=== PATIENT | female | born 1945 | race Caucasian/White ===

== ENCOUNTER 2021-08-28 14:56 | Outpatient (CLI) | payer MEDICARE, BC, SELFPAY ==
--- NOTE | ~2021-08-28 | DEXA_ITS ---
Bone Density Report Name: Fabiola Florez Age: 76 Sex: Female Ethnicity: White Date of : 1945 Indication: postmenopausal; height loss; hysterectomy; Referring Provider: Judy Alexandra Study: Bone densitometry was performed. Exam Date: August 28, 2021 Accession number: [id number] Bone Density: Region BMD T-score Z-score Classification AP Spine (L1, L2) 1.041 0.6 2.8 Normal Femoral Neck (Left) 0.703 -1.3 0.8 Osteopenia Total Hip (Left) 0.920 -0.2 1.6 Normal Total Hip Bilateral Avg 0.916 -0.3 1.6 Normal Femoral Neck (Right) 0.772 -0.7 1.4 Normal Total Hip (Right) 0.910 -0.3 1.5 Normal World Health Organization criteria for BMD impression classify patients as: Normal (T-score at or above -1.0), Osteopenia (T-score between -1.0 and -2.5), or Osteoporosis (T-score at or below -2.5). 10-year Fracture Risk(1): Major Osteoporotic Fracture 10% Hip Fracture 1.8% Reported Risk Factors: [place] (), Neck BMD=0.703, BMI=31.7 (1) FRAX(R) Version 3.08. Fracture probability calculated for an untreated patient. Fracture probability may be lower if the patient has received treatment. Previous Exams: Region Exam Age BMD T-score BMD Change BMD Change Date g/cm2 vs Baseline vs Previous AP Spine(L1, L2) 08/28/2021 76 1.041 0.6 -0.008(-0.8%)# 0.065(6.7%)# 02/18/2014 68 0.976 0.0 -0.073(-7.0%)# -0.114(-10.5%) 07/09/2009 64 1.090 1.0 0.041(3.9%)* 0.041(3.9%)* 11/16/2005 60 1.049 0.6 Total Hip(Left) 08/28/2021 76 0.920 -0.2 -0.145(-13.6%) -0.071(-7.2%)# 02/18/2014 68 0.991 0.4 -0.074(-7.0%)# -0.030(-2.9%)# 07/09/2009 64 1.021 0.6 -0.044(-4.2%)* -0.044(-4.2%)* 11/16/2005 60 1.065 1.0 Total Hip(Right) 08/28/2021 76 0.910 -0.3 -0.125(-12.1%) -0.112(-11.0%) 02/18/2014 68 1.021 0.7 -0.013(-1.2%)# -0.033(-3.1%)# 07/09/2009 64 1.054 0.9 0.020(1.9%) 0.020(1.9%) 11/16/2005 60 1.034 0.8 *Denotes significance at 95% confidence level, LSC for AP Spine = 0.022 g/cm2, LSC for Total Hip = 0.027 g/cm2 Clinical Information Provided by Patient: Has used the following medications: Calcium Has the following medical conditions: Hysterectomy Patient maximum height was 63 Menopause Age: 51 Onset of menses at age 11 Number of children 2 Impression: The patient has low bone mass, based on the Left Femoral Neck T-score. The patient has an estimated ten-year risk o
== END 2021-08-28 14:57 | disposition home or self-care (01) ==
LOC: ANHIMG 15:01
PROVIDERS: PCP Family Medicine; Visit Provider Physician Assistant
DX: Z78.0 Asymptomatic menopausal state (principal); M85.852 Other specified disorders of bone density and structure, left thigh
CPT/HCPCS: 77080

== ENCOUNTER 2024-11-22 00:10 | Day surgery (SDC) | payer MEDICARE, BC, SELFPAY ==
[2024-10-31 14:05] VITALS: BMI 27.1
[2024-11-22 12:05] VITALS: BP 154/84; PULSE 85; RESP 18; O2SAT 98; BMI 27.2
--- NOTE | 2024-11-22 12:14 | WPDANESEPPF ---
Anes - Initial Pre Proc Eval Procedure: Operation Date: 11/22/24 13:30 Proposed Procedures p Colonoscopy - Johan Castillo MD Date/Time: 11/22/24 12:14 Surgeon: Johan Castillo MD Pre Op Diagnosis: + Cologuard Patient Data Age: 79 Gender: F Height: 1.6 m Weight: 69.7 kg Last Vital Signs Pulse 85 11/22/24 12:05 Resp 18 11/22/24 12:05 BP 154/84 H 11/22/24 12:05 Pulse Ox 98 11/22/24 12:05 O2 Del Method Room Air 11/22/24 12:05 Allergies Allergy/AdvReac Type Severity Reaction Status Date / Time No Known Allergies Allergy Verified 11/22/24 12:03 Home Medications ?Medication ?Instructions ?Recorded ?Confirmed ?Type blood-glucose meter (True Metrix #1 ea 10/19/19 10/31/24 History Glucose Meter) aspirin 81 mg tablet,delayed 81 mg PO DAILY 10/25/19 10/31/24 History release blood sugar diagnostic (True See Rx Instructions .Route 03/03/21 10/31/24 Rx Metrix Glucose Test Strip) .COMPLEX #200 strips timolol maleate 0.5 % once daily 1 drp EACH EYE DAILY 07/26/23 10/31/24 History eye drops calcium 600 mg (as 1 cap PO DAILY 12/07/23 10/31/24 History carbonate)-vitamin D3 12.5 mcg (500 unit) capsule amlodipine 10 mg tablet See Rx Instructions .Route 08/14/24 10/31/24 Rx .COMPLEX #90 tabs atorvastatin 20 mg tablet See Rx Instructions .Route 08/14/24 10/31/24 Rx .COMPLEX #90 tabs ramipril 10 mg capsule See Rx Instructions .Route 08/14/24 10/31/24 Rx .COMPLEX #90 caps metformin 500 mg tablet See Rx Instructions .Route 11/20/24 11/22/24 Rx .COMPLEX #180 tabs Patient hx anesthesia problems: none Family hx anesthesia problems: none Results Review: All pre-operative results and documents have been reviewed as part of the pre-operative evaluation. [facility], [facility] Past Medical History Medical History Mixed hyperlipidemia Metabolic syndrome X Type 2 diabetes mellitus with other diabetic kidney complication Chronic kidney disease, stage 3 (moderate) Hypertensive chronic kidney disease with stage 1 through stage 4 chronic kidney disease, or unspecified chronic kidney disease Surgical History Surgical History History of hysterectomy (~1995) History of cataract extraction (~06/18/09) History of cataract extraction (~06/02/11) History of colonoscopy (~12/07/11) History of carpal tunnel release (~03/14/17) Family History Family History Grandparent Diabetes mellitus Mother Hypertension Father Patient's father is Sibling Family history of malignant neoplasm Family history of lung cancer Other Family history of cardiovascular disease Social History Social History Social History: Caffeine- some Smoking status: Never smoker Alcohol intake: current Alcohol use details: rarely Substance use: never Substance use type: does not use Do You Feel Safe in your Home?: Yes Lack of Transportation: No Lack of Food: Never True Current Housing: I Have Housing Concerned About Future Housing: No Difficulty Paying Gas/Electric Bills: No Difficulty Paying for Meds: No Currently Unemployed: No Education: High School Diploma/GED Difficulty w/ Childcare or Family Care: No Living arrangements: alone Occupation/Education: retired Gender identity (if verbalized by the patient): Female Spiritual care concerns: No Agree to blood products: Yes Anes - Eval Final PreProcedure Day of Procedure 11/22/24 12:14 Patient weight: overweight Heart: regular rate and rhythm Lungs: clear to auscultation Airway: Mallampati scale class II Neurological: alert and oriented Last oral intake: >/= 8 hours ASA classification: III Emergent: no Anesthetic plan: proceed Anesthesia type and monitoring: general GIVS and standard monitoring Results Review: All pre-operative results and documents have been reviewed as part of the pre-operative evaluation. Informed Consent: The patient's anesthetic plan and its attendant risks and benefits were discussed with the patient/family/POA. Questions were solicited and answers provided to the satisfaction of the patient/family/POA.
[2024-11-22] MEDS: LACTATED RINGERS 1,000 ML 150 ML IV CONT (12:16)
[2024-11-22 12:19] LABS: Glucose Point of Care 142 mg/dl (65-105)
--- NOTE | 2024-11-22 12:52 | PM.HPGS ---
History of Present Illness History of Present Illness Consent: Risks, benefits, and alternatives have been discussed and questions answered. Patient agrees to proceed with procedure. Chief complaint: + Cologuard Narrative: Fabiola Florez is a 79 year old female here with + cologuard, last colonoscopy more than 10 years ago Review of Systems Review of Systems: All systems reviewed & are unremarkable except as noted in HPI and below PMFSH Past Medical History Medical History Mixed hyperlipidemia Metabolic syndrome X Type 2 diabetes mellitus with other diabetic kidney complication Chronic kidney disease, stage 3 (moderate) Hypertensive chronic kidney disease with stage 1 through stage 4 chronic kidney disease, or unspecified chronic kidney disease Surgical History Surgical History History of hysterectomy (~1995) History of cataract extraction (~06/18/09) History of cataract extraction (~06/02/11) History of colonoscopy (~12/07/11) History of carpal tunnel release (~03/14/17) Family History Family History Grandparent Diabetes mellitus Mother Hypertension Father Patient's father is Sibling Family history of malignant neoplasm Family history of lung cancer Other Family history of cardiovascular disease Social History Social History Social History: Caffeine- some Smoking status: Never smoker Alcohol intake: current Alcohol use details: rarely Substance use: never Substance use type: does not use Do You Feel Safe in your Home?: Yes Lack of Transportation: No Lack of Food: Never True Current Housing: I Have Housing Concerned About Future Housing: No Difficulty Paying Gas/Electric Bills: No Difficulty Paying for Meds: No Currently Unemployed: No Education: High School Diploma/GED Difficulty w/ Childcare or Family Care: No Living arrangements: alone Occupation/Education: retired Gender identity (if verbalized by the patient): Female Spiritual care concerns: No Agree to blood products: Yes Meds Home Medications and Allergies Home Medications ?Medication ?Instructions ?Recorded ?Confirmed ?Type blood-glucose meter (True Metrix #1 ea 10/19/19 10/31/24 History Glucose Meter) aspirin 81 mg tablet,delayed 81 mg PO DAILY 12/12/19 12/18/24 History release blood sugar diagnostic (True See Rx Instructions .Route 03/03/21 10/31/24 Rx Metrix Glucose Test Strip) .COMPLEX #200 strips timolol maleate 0.5 % once daily 1 drp EACH EYE DAILY 07/26/23 10/31/24 History eye drops calcium 600 mg (as 1 cap PO DAILY 12/07/23 10/31/24 History carbonate)-vitamin D3 12.5 mcg (500 unit) capsule amlodipine 10 mg tablet See Rx Instructions .Route 08/14/24 10/31/24 Rx .COMPLEX #90 tabs atorvastatin 20 mg tablet See Rx Instructions .Route 08/14/24 10/31/24 Rx .COMPLEX #90 tabs ramipril 10 mg capsule See Rx Instructions .Route 08/14/24 10/31/24 Rx .COMPLEX #90 caps metformin 500 mg tablet See Rx Instructions .Route 11/20/24 11/22/24 Rx .COMPLEX #180 tabs Allergies Allergy/AdvReac Type Severity Reaction Status Date / Time No Known Allergies Allergy Verified 11/22/24 12:03 Vital Signs Vital Signs - 24 hr 11/22/24 12:05 Pulse Rate 85 Respiratory Rate 18 Blood Pressure 154/84 H Pulse Oximetry 98 Oxygen Delivery Room Air Exam Const: General: comfortable and no acute distress HENMT: Face/Nose/Sinus: Normal nares present Eyes: General: appearance normal, both eyes and all related structures Neck: Neck: no JVD Resp: Auscultation: clear to auscultation bilaterally Cardio: Rate: regular rate Rhythm: regular rhythm GI: Inspection: non-distended GI Palp: Yes Soft to palpation Skin: General skin exam: normal color Neuro: Speech: normal speech Extrem: General: normal to inspection Psych: Mental Status: mental status grossly normal Assessment and Plan Assessment and plan (1) Positive FIT (fecal immunochemical test): Code(s): R19.5 - Other fecal abnormalities Status: Acute Assessment and Plan: colonoscopy
[2024-11-22 13:18] VITALS: BP 130/60; PULSE 73; RESP 17; O2SAT 99
[2024-11-22 13:28] VITALS: BP 139/70; PULSE 69; RESP 20; O2SAT 98
[2024-11-22 13:38] VITALS: BP 157/84; PULSE 74; RESP 20; O2SAT 99
== END 2024-11-22 13:55 | disposition home or self-care (01) ==
PROVIDERS: PCP Family Medicine; Referring Provider Nurse Practitioner; Visit Provider Internal Medicine Gastroenterology
PROC: 0DJD8ZZ Inspection of Lower Intestinal Tract, Via Natural or Artificial Opening Endoscopic (ICD-10-PCS; CPT 45378; principal; 2024-11-22 13:30)
DX: D12.2 Benign neoplasm of ascending colon (principal); K64.8 Other hemorrhoids; K57.30 Diverticulosis of large intestine without perforation or abscess without bleeding; E78.2 Mixed hyperlipidemia; E11.22 Type 2 diabetes mellitus with diabetic chronic kidney disease; I12.9 Hypertensive chronic kidney disease with stage 1 through stage 4 chronic kidney disease, or unspecified chronic kidney disease; N18.30 Chronic kidney disease, stage 3 unspecified; E88.810 Metabolic syndrome; Z79.82 Long term (current) use of aspirin; Z79.84 Long term (current) use of oral hypoglycemic drugs; Z98.890 Other specified postprocedural states; Z80.1 Family history of malignant neoplasm of trachea, bronchus and lung; Z82.49 Family history of ischemic heart disease and other diseases of the circulatory system
CPT/HCPCS: 45380; 82948; 88305; J2003; J2704; J7120

== ENCOUNTER 2025-07-22 10:18 | Emergency (ER) | payer MEDICARE, BC, SELFPAY ==
--- OUTSIDE RECORDS SUMMARY | 2010-07-28 08:00 | XMS_ITS | Continuity of Care Document ---
Author Organization Subject Company [facility] Address [address] [place] [phone] Phone Care Team Providers Care Director Of [employer] Name Role Phone Jacqueline Oconnell Unavailable Unavailable Procedures Procedure Date Office/outpatient Visit, Est Fundus Photography W/ Report Visual Field Examination(s) Office/outpatient Visit, Est Post-op Follow-up Visit Post-op Follow-up Visit Post-op Follow-up Visit Remove Cataract, Insert Lens Office/outpatient Visit, Est IOLMaster Office/outpatient Visit, Est Eye Exam Established Pt Ophthalmoscopy, Subsequent Eye Exam & Treatment Ophthalmoscopy, Subsequent Optic Nerve Topography Office Consultation Ophthalmoscopy Optic Nerve Topography Injection Eye Drug Kenalog/Triamcinolone Acetonide Inj Eye Exam & Treatment Fundus Photography W/ Report Office/outpatient Visit, Est Visual Field Examination(s) Office/outpatient Visit, Est Vision Svcs Frames Purchases Progressive Lens, Polycarb Tint Photochromatic, Polycarb 7 Eye Exam & Treatment Refraction Fundus Photography W/ Report Visual Field Examination(s) Advance Directives Directive Yes / No Effective Date File Name No Information Encounters Encounter Description Practice Location Reason(s) For Visit Diagnoses Date Provider Providers Copied on Encounter Office/outpati ent Visit, [facility], [address] [place] [address] [address], [place], [place], [id number], [phone] [place] [address] No Information - 0 [facility] [employer] [facility] , [address], [place], [place], [facility], . tel:[phone] Referring Provider: [facility] [employer] [facility] [address], [place], [facility]. tel:[phone] [facility], [address] [place] [address] [address], [place], [place], [id number], tel:[phone] [facility] No Information 0-201 0 [address], [address], [place], [address], [place]. tel:[phone] Referring Provider: Jacqueline Reynolds, [employer] [address], [place], [facility]. tel:[phone] Office/outpati ent Visit, [facility], [address] [place] [address] [address], [place], [place], [address], [place] tel:[phone] [facility] No Information 2- 0 [facility] , [address], [place], [address], . tel:[phone] [facility], [address] [place] [address] [address], [place], [place], [address], [place] tel:[phone] [facility] No Information 200 9 Oconnell Jacqueline. [address] , [address], [place], [facility], [place]. tel:[phone] [facility], [address] [place] [address] [address], [place], [place], [address], [place] [phone] [facility] No Information 200 9 Kourtney Phillips. [address] [facility] , [address], [place], [facility], [place]. tel:[phone] [facility], [address] [place] [address] [address], [place], [place], [address], [place] tel:[phone] [facility] No Information 0 9 Glynn OD Jay. [address] [facility] , [address], [place], [facility], [place]. tel:[phone] [facility], [address] [place] [address] [address], [place], [place], [address], [place] tel:[phone] [facility] No Information 0 9 Kourtney Mcgrathn. [address] [facility] , [address], [place], [facility], [place]. tel:[phone] Office/outpati ent Visit, [facility], [address], [place], [place], [address], [place] [phone] [facility] No Information 2 9 Oconnell Jacqueline. [address] , [address], [place], [facility], [place]. tel:[phone] Referring Provider: Jacqueline Reynolds, [address], [place], [facility]. tel:[phone] Office/outpati ent Visit, Est [facility], [address], [place], [place], [address], [place] tel:[phone] [facility] No Information 200 9 Oconnell Jacqueline. [address] , [address], [place], [facility], [place]. tel:[phone] [facility], [address] [place] [address] [address], [place], [place], [address], tel:[phone] [facility] No Information 2200 9 Tata Saucedo. [address] [place], [place], [facility], [place]. tel:[phone] Referring Provider: Lewis Rey, [address] [place], [facility]. tel:[phone] [facility], [address] [place] [address] [address], [place], [place], [address], [place] [phone] [facility] No Information 9 Tata Saucedo. [address] [place] [address], [facility], [place]. tel:[phone] Referring Provider: Lewis Rey, [address] [place], [facility]. tel:[phone] Office Consultation [facility], [address] [place] [address] [address], [place], [place], [address], [place] tel:[phone] [facility] No Information 2 9 Tata Saucedo. [address] [place], [facility], [place]. tel:[phone] Referring Provider: Jacqueline Reynolds, [address], [place], [facility]. tel:[phone] [facility], [address] [place] [address] [address], [place], [place], [address], [place] tel:[phone] [facility] No Information 0-200 9 Kourtney Phillips. [address] , [address], [place], [facility], [place]. tel:[phone] Referring Provider: Jacqueline Reynolds, [address], [place], [address]. tel:[phone] Office/outpati ent Visit, [facility], [address] [place] [address] [address], [place], [place], [address], [place] tel:[phone] [facility] No Information Jun-2 9200 8 Kourtney Phillips. [address] , [address], [place], [facility], [place]. tel:[phone] [facility], [address] [place] [address] [address], [place], [place], [address], [place] tel:[phone] [facility] No Information Feb-2 8-200 8 Kourtney Phillips. [address] [facility] , [address], [place], [facility], [place]. tel:[phone] Referring Provider: Jacqueline Reynolds, [employer] [facility] [address], [place], [facility]. tel:[phone] Office/outpati ent Visit, [facility], [address] [place] [address] [address], [place], [place], [address], [place] tel:[phone] [place] [address] No Information Aug- 2-200 7 Kourtney Phillips. [address] [facility] , [address], [place], [facility], [place]. tel:[phone] [facility], [address] [place] [address] [address], [place], [place], [address], [place] tel:[phone] [facility] No Information Saleem-2 2-200 7 [facility] . [address] [facility], [address], [place], [place], [address], . tel:[phone] Referring Provider: Jacqueline Reynolds, [employer] [employer] [facility] [address], [place], [facility]. tel:[phone] g Provider: Christianne Lawson, [address] [facility], [place], [address]. tel:[phone] [facility], [address] [place] [address] [address], [place], [place], [address], tel:[phone] [place] [address] No Information 7 Kourtney Phillips. [facility] [place] , [address], [place], [facility], . tel:[phone] Referring Provider: Jacqueline Reynolds, [facility] [address], [place], [facility]. tel:[phone] [facility], [address] [place] [address] [address], [place], [place], [address], tel:[phone] [facility] No Information 7 Kourtney Phillips. [facility] , [address], [place], [facility], . tel:[phone] Referring Provider: Jacqueline Reynolds, [facility] [place] [address], [place], [facility]. tel:[phone] Family History Family Member Type Diagnosis Age At Onset No Information Payers Payer name Insurance type Covered libertarian ID Authoriza tion[id number] Social History Type Description Quantity Date Captured Comments Sex Female Smoking Status No Information Chief Complaint And Reason For Visit No Information Reason For Referral Reason For Referral No Information History Of Present Illness Encounter Date Complaint History Of Prese nt Illness No Information Functional Status Date Functional Assessmen t No Information Instructions Date Instruction Additional Infor mation No Information Assessments Type Assessment Date No Information Patient Care Teams Name Effective Dates (start - stop) Status Members No Information
[2025-07-22 10:33] VITALS: BP 139/62; PULSE 76; RESP 18; TEMP 36.4; O2SAT 98
--- NOTE | 2025-07-22 11:06 | ED.SKABFB ---
HPI - Skin/Abscess/Foreign Bdy General Chief complaint: Skin/Abscess/Foreign Body Stated complaint: bump on side of nose Time Seen by Provider: 07/22/25 10:46 Source: patient, RN notes reviewed and old records reviewed Mode of arrival: ambulatory Limitations: no limitations History of Present Illness HPI narrative: 10 year old female who presents to [facility] care with complaints of red spot to the right side of her nose since fall of last year but for the past month patient has had raised tissue to area measuring 2 cm X 1.5 cm. Patient reports no pain to tissue area but tisue has changed in appearance over the past month with tissue now raised. Patient reports that she has not had any drainage from the raised tissue area. She states that she does not have a doctor's appointment with PCP till September did not call her doctor's office.Patient reports no itching of tissue MD complaint: lesion (initially reddish raised are right side of nose now raised) Onset (ago): month(s) (increased symptoms for 1 month with tissue raised now right side of nose.) Treatments prior to arrival: none Related Data Home Medications ?Medication ?Instructions ?Recorded ?Confirmed ?Last Taken ?Type blood-glucose meter (True Metrix #1 ea 10/19/19 06/04/25 Unknown History Glucose Meter) aspirin 81 mg tablet,delayed 81 mg PO DAILY 10/25/19 06/04/25 Unknown History release timolol maleate 0.5 % once daily 1 drp EACH EYE DAILY 07/26/23 06/04/25 Unknown History eye drops calcium 600 mg (as 1 cap PO DAILY 12/07/23 06/04/25 Unknown History carbonate)-vitamin D3 12.5 mcg (500 unit) capsule Allergies Allergy/AdvReac Type Severity Reaction Status Date / Time No Known Allergies Allergy Verified 07/22/25 10:33 Review of Systems Review of Systems: CONSTITUTIONAL: Denies fever, chills, or sweats. CARDIOVASCULAR: Denies chest pain, palpitations, or edema. RESPIRATORY: Denies cough or dyspnea. SKIN: Reports redness to the right side of her nose since last fall and for the past 1 month she has raised tissue in area of right side of nose with no break in skin integrity MUSCULOSKELETAL: Denies joint pain or myalgia. NEUROLOGIC: Denies headache, numbness, or weakness. All systems reviewed & are unremarkable except as noted in HPI and below PMFSH Past Medical History Medical History (Updated 07/22/25 @ 19:37 by Fatuma Rodriges NP) Glaucoma Mixed hyperlipidemia Metabolic syndrome X Type 2 diabetes mellitus with other diabetic kidney complication Chronic kidney disease, stage 3 (moderate) Hypertensive chronic kidney disease with stage 1 through stage 4 chronic kidney disease, or unspecified chronic kidney disease Surgical History Surgical History History of hysterectomy (~1995) History of cataract extraction (~06/18/09) History of cataract extraction (~06/02/11) History of colonoscopy (~12/07/11) History of carpal tunnel release (~03/14/17) Family History Family History Grandparent Diabetes mellitus Mother Hypertension Father Patient's father is Sibling Family history of malignant neoplasm Family history of lung cancer Other Family history of cardiovascular disease Social History Social History Social History: Caffeine- some Smoking status: Never smoker Alcohol intake: current Alcohol use details: rarely Substance use: never Substance use type: does not use Do You Feel Safe in your Home?: Yes Lack of Transportation: No Lack of Food: Never True Current Housing: I Have Housing Concerned About Future Housing: No Difficulty Paying Gas/Electric Bills: No Difficulty Paying for Meds: No Currently Unemployed: No Education: High School Diploma/GED Difficulty w/ Childcare or Family Care: No Living arrangements: alone Occupation/Education: retired Gender identity (if verbalized by the patient): Female Spiritual care concerns: No Agree to blood products: Yes Comments At time of signature, agree with nursing past medical, surgical, social and family history. There is no relevant family history pertinent to the presenting complaint Exam Narrative: GENERAL: Well-appearing, well-nourished, and in no acute distress. HEAD: Normocephalic, atraumatic. EYES: PERRLA, conjunctivae clear, and EOMI. ENT: Mucous membranes moist. Oropharynx without edema, erythema or lesions. NECK: Supple. No lymphadenopathy CHEST: Clear to auscultation. No respiratory distress. no cough or congestion noted HEART: Regular rate and rhythm. SKIN: Warm, dry.? patch of erythema with raised tissue area to right side of nose measuring 2cm X 1.5cm with no itching or reported pain, no fluctuation of tissue noted or any pustules noted on raised skin tissue on nose. NEURO:? Alert and oriented x3. PSYCH: Normal mood and affect Course Course Emergency Course: Patient is aware of diagnosis, understands and agrees to treatment plan.? Anticipatory guidance given.? Patient agrees to follow-up as directed and is aware of reasons to seek care at the emergency department. Portions of this record may have been created with voice recognition software Level of Care: Express Care Visit Vital Signs Vital signs: Vital Signs Temperature 36.4 C 07/22/25 10:33 Pulse Rate 76 07/22/25 10:33 Respiratory Rate 18 07/22/25 10:33 Blood Pressure 139/62 07/22/25 10:33 Pulse Oximetry 98 07/22/25 10:33 Oxygen Delivery Room Air 07/22/25 10:33 Temperature 36.4 C 07/22/25 10:33 Pulse Rate 76 07/22/25 10:33 Respiratory Rate 18 07/22/25 10:33 Blood Pressure 139/62 07/22/25 10:33 Pulse Oximetry 98 07/22/25 10:33 Oxygen Delivery Room Air 07/22/25 10:33 Reviewed MDM - Skin/Abscess/Foreign Bdy MDM Narrative Medical decision making narrative: Does not appear at this time to be erythema multiforme, bullous, SJS, TEN; no evidence at this time to suggest RMSF, endocarditis or Lyme disease; patient looks well, nontoxic and is tolerating oral intake; no neurologic signs or symptoms; no headache, photophobia or neck pain; afebrile; appropriate for initial outpatient treatment; discussed the importance of follow-up, patient agrees; question, viral exanthema, contact dermatitis, allergic dermatitis, eczema, urticaria.. No soft palate or uvula edema, no tongue, lip edema or other mucosal involvement, no respiratory compromise, no stridor, no wheezing, no wheezing, no history of syncope, no hypotension, no nausea, vomiting, or diarrhea.? Instructed patient to go to nearest ER immediately for any worsening symptoms including but not limited to: fever, spreading rash, pain, sore throat, headache, dizziness, chest pain, trouble breathing, or any symptoms concerning to the patient. Differential Diagnosis Differential diagnosis: Likely eczema, contact dermatitis and other (keratosis, precancerous or cancerous lesion face.) Medical Records Attestation: I reviewed the patient's medical records. Critical Care Time Critical Care Time Critical Care Time: No Discharge Plan Discharge Clinical Impression: External nasal lesion Patient Disposition: Home Condition: Stable Additional Instructions: Avoid any irritating medication to area or metal Apply mupirocin twice daily Appointment established with [facility] for further evaluation for this TuesdayJuly 26 at 1030 information given to patient with address phone number given to patient. If your symptoms persist, change or worsen significantly before you can contact your personal physician then please, without delay, go to the emergency department for further evaluation. Follow-up with PCP in 7-10 days or sooner if needed Follow up with PCP soon in regards to your blood pressure which is elevated above threshold for referral. Blood pressure above 120/80 may indicate pre-hypertension. Patient Language: Kinyarwanda Prescriptions: New mupirocin [Centany] 2 % ointment 1 applic topical BID Qty: 22 0RF Rx Instructions: apply to nasal area 2 times daily No Action aspirin 81 mg tablet,delayed release (DR/EC) 81 mg PO DAILY timolol maleate 0.5 % drops, once daily 1 drp EACH EYE DAILY (DME) blood-glucose meter [True Metrix Glucose Meter] Misc See Rx Instructions .ROUTE .MEDSUPPLY Qty: 1 Rx Instructions: As directed blood sugar diagnostic [True Metrix Glucose Test Strip] Strip See Rx Instructions .ROUTE .COMPLEX Qty: 200 4RF Dose Instruction: USE AND DISCARD 1 TEST STRIP DIRECTED Rx Instructions: USE AND DISCARD 1 TEST STRIP DIRECTED calcium carbonate-vitamin D3 600 mg-12.5 mcg (500 unit) capsule 1 cap PO DAILY atorvastatin 20 mg tablet See Rx Instructions .ROUTE .COMPLEX Qty: 90 1RF Dose Instruction: TAKE 1 TABLET DAILY Rx Instructions: TAKE 1 TABLET DAILY ramipril 10 mg capsule See Rx Instructions .ROUTE .COMPLEX Qty: 90 1RF Dose Instruction: TAKE 1 CAPSULE DAILY Rx Instructions: TAKE 1 CAPSULE DAILY amlodipine 10 mg tablet See Rx Instructions .ROUTE .COMPLEX Qty: 90 1RF Dose Instruction: TAKE 1 TABLET DAILY Rx Instructions: TAKE 1 TABLET DAILY metformin 500 mg tablet See Rx Instructions .ROUTE .COMPLEX Qty: 180 1RF Dose Instruction: TAKE 1 TABLET TWICE A DAY Rx Instructions: TAKE 1 TABLET TWICE A DAY Follow-up/Referrals: Sylvie Ocasio DO [Primary Care Provider, [facility]] Time of Disposition: 11:42 Quality [place] Coma Scale Eyes: Open Verbal: Oriented and Alert Motor: Follows Commands [place] Coma Total Score: 15
== END 2025-07-22 11:48 | disposition home or self-care (01) ==
PROVIDERS: Emergency Provider Registered Nurse; PCP Family Medicine
DX: J34.89 Other specified disorders of nose and nasal sinuses (principal); I12.9 Hypertensive chronic kidney disease with stage 1 through stage 4 chronic kidney disease, or unspecified chronic kidney disease; E11.22 Type 2 diabetes mellitus with diabetic chronic kidney disease; N18.30 Chronic kidney disease, stage 3 unspecified; Z79.84 Long term (current) use of oral hypoglycemic drugs; E11.39 Type 2 diabetes mellitus with other diabetic ophthalmic complication; H40.9 Unspecified glaucoma; H42 Glaucoma in diseases classified elsewhere; E78.2 Mixed hyperlipidemia; E88.810 Metabolic syndrome; Z79.82 Long term (current) use of aspirin
CPT/HCPCS: 99213; G0463